=== PATIENT | female | born 1995 | race African-American/Black ===

== ENCOUNTER 2017-08-31 13:49 | Emergency (ER) | payer OTHER ==
[~2017-08-31] VITALS: Ht 172.7 cm; Wt 130.9 kg
[~2017-08-31 13:49] MED LIST: IBUP-671 PO
[2017-08-31 14:03] VITALS: BP 130/75
== END 2017-08-31 18:21 | disposition left against medical advice (07) ==
LOC: EMS 13:49
DX: J06.9 Acute upper respiratory infection, unspecified (principal); F41.9 Anxiety disorder, unspecified
CPT/HCPCS: 81025; 99282